=== PATIENT | female | born 1995 | race Caucasian/White ===

== ENCOUNTER 2017-03-08 01:26 | Emergency (ER) | payer MEDICAID ==
--- NOTE | 2017-03-08 19:52 | ER ---
ADMIT: 03/08/2017 RM/LOC: ER [facility] MR#: [id number] [id number] [place], [place] [id number] CHRISTIE LOYD [address] [place] [address] Emergency Room Report SEX: F AGE: 22 : 1995 DATE: 03/08/2017 HISTORY OF PRESENT ILLNESS: The patient is a 22-year-old female, came here with chief complaint of 1 day of frequency and urgency and feeling pressure in the suprapubic area. The patient denies similar symptoms in the past. The patient denies any abdominal pain and states she is just feeling pressure. The patient denies any nausea or vomiting or back pain or hematuria or vaginal discharge or vaginal bleeding. PHYSICAL EXAMINATION: GENERAL: The patient is in no pain or distress. VITAL SIGNS: Afebrile. Vitals are stable. HEAD and NECK: Normal. CHEST: Clear. HEART: Normal heart sounds. ABDOMEN: Soft, without any CVA tenderness or rebound tenderness or guarding. There is no suprapubic tenderness. The rest of the physical exam is noncontributory. EMERGENCY ROOM COURSE: The patient had negative urine test. Also, the urine was positive for 669 wbc's and 59 rbc's and many wbc clumps. The patient had no allergies and was discharged to home with 10 days of Keflex 500 mg every 6 hours and follow up with the primary doctor in 2 weeks for repeat UA and further followups and treatments. Plan was discussed with the patient, she agreed upon it and she was discharged to home. Tito Acosta MD/ yulisa JOB #: [id number] CC: Tito Acosta MD, Attending Physician Ibrahima Yates MD, Family Physician
== END 2017-03-08 02:50 | disposition home or self-care (01) ==
LOC: ER 01:26
DX: N39.0 Urinary tract infection, site not specified (principal)

== ENCOUNTER 2017-04-12 23:11 | Emergency (ER) | payer MEDICAID ==
--- NOTE | 2017-04-13 19:09 | ER ---
ADMIT: 04/12/2017 RM/LOC: ER [facility] MR#: [id number] [id number] [place], [place] [id number] CHRISTIE LOYD [address] [place] [address] Emergency Room Report SEX: F AGE: 22 : 1995 DATE: 04/12/2017 HISTORY OF PRESENT ILLNESS: The patient is a 22-year-old female, 1 allegedly, para 0, who came to the ER because the last menstrual period was on January and February, and she was worried that she could be and she is . The patient denies menstruation since then and denies any vaginal bleeding or spotting or abdominal pain or passage of tissue. The patient also complains of mild dysuria too without urgency or frequency or nocturia. PHYSICAL EXAMINATION: GENERAL: The patient was in no pain or distress. HEAD and NECK: Normal. CHEST: Noncontributory and normal. ABDOMEN: Nontender and normal. The rest of the physical examination is noncontributory and normal. LABORATORY DATA: Urine was negative. UA was positive for 87 white blood cells and 8 red blood cells. EMERGENCY ROOM COURSE: With diagnosis of urinary tract infection, the patient received a dose of Keflex in the ER and was discharged to home with prescription for Keflex and follow up with the primary doctor as needed. Tito Acosta MD/ yulisa JOB #: [id number] CC: Tito Acosta MD, Attending Physician Ibrahima Yates MD, Family Physician
== END 2017-04-13 00:24 | disposition home or self-care (01) ==
LOC: ER 23:11
DX: N39.0 Urinary tract infection, site not specified (principal)